=== PATIENT | female | born 1970 | race Caucasian/White ===

== ENCOUNTER 2023-09-23 13:25 | Emergency (ER) | payer MEDICARE, MEDICAID, SELFPAY ==
--- NOTE | ~2023-09-23 | CT_ITS ---
EXAMINATION: CT cervical spine wo con DATE: 09/23/2023 15:43 INDICATION: Neck pain. TECHNIQUE: Computed tomography (CT) of the cervical spine was performed without intravenous contrast. The dose-length product was 471 mGy-cm. Automated exposure control and iterative reconstruction tech [employer] were employed. COMPARISON: None FINDINGS: Normal cervical alignment. Craniovertebral junction is normal. Odontoid process is normal. There is degenerative disc disease and endplate hypertrophy at C5-6. There is disc narrowing at C3-4. There is multilevel uncinate and to a lesser degree facet hypertrophy, most pronounced at C5-6. Lung apices are normal. No evidence for perched facet. Spinous processes are normal. No paraspinal soft t issue abnormality. IMPRESSION: 1. No acute abnormality of the cervical spine. Reviewed, dictated and finalized at location B.
--- NOTE | ~2023-09-23 | XR_ITS ---
EXAM: XR shoulder LT min 2V DATE: 09/23/2023 15:36 HISTORY: left shoulder pain . COMPARISON: None available. FINDINGS: Left chest port terminating in the distal SVC. Normal mineralization. No fracture or dislo cation. No lytic or blastic lesion. Moderate acromioclavicular and mild glenohumeral osteoarthritis. No erosion or periosteal change. Soft tissues within normal limits. IMPRESSION: No acute osseous finding in the left shoulder. Reviewed, dictated and finalized at location K.
--- NOTE | ~2023-09-23 | XR_ITS ---
EXAMINATION: XR chest 1V 09/23/2023 15:36 INDICATION: Chest pain PROCEDURE: PA view of the chest COMPARISON: No prior studies for comparison. FINDINGS: The lungs are clear. The cardiomediastinal silhouette is within normal limits. There are no pleural effusions. There is no pneumothorax suspected. Jose catheter tip in the SVC. IMPRESSION: 1: NO ACUTE CARDIOPULMONARY DISEASE. Reviewed, dictated and finalized at location B.
[2023-09-23 13:41] VITALS: BP 146/93; PULSE 90; RESP 16; TEMP 36.6; O2SAT 98
--- NOTE | 2023-09-23 15:03 | ED.EXTPRO ---
HPI - Extremity Problem General Chief complaint: Recheck/Abnormal Lab/Rx Stated complaint: port moved Time Seen by Provider: 09/23/23 14:54 Source: patient Mode of arrival: ambulatory Limitations: no limitations History of Present Illness HPI Narrative: This is a 53 year old female that presents to the ER for ongoing left shoulder pain. Reports the pain radiates from her neck to her shoulder and into her arm. Reports tingling in her arm which has been ongoing for a couple of months as well. Her port is painful and she is wondering if it has moved. Denies decreased ROM or numbness. Related Data Allergies Allergy/AdvReac Type Severity Reaction Status Date / Time haloperidol [From Haldol] Allergy Unknown Verified 09/23/23 13:26 tramadol Allergy Hives Verified 09/23/23 13:26 Review of Systems Review of Systems: CONSTITUTIONAL: Denies fever CARDIOVASCULAR: Denies chest pain RESPIRATORY: Denies dyspnea. MUSCULOSKELETAL: Reports joint pain, and myalgia. NEUROLOGIC: Denies numbness, or weakness. All systems reviewed & are unremarkable except as noted in HPI and below PMFSH Past Medical History Medical History (Updated 09/23/23 @ 16:15 by Jo Ann Powell PA-C) History of breast cancer History of schizophrenia Social History Social History (Updated 09/23/23 @ 15:13 by Jo Ann Powell PA-C) Substance use: never Exam Narrative: GENERAL: Well-appearing, well-nourished, and in no acute distress. HEAD: Normocephalic, atraumatic. EYES: PERRLA and EOMI. ENT: Nares clear, no rhinorrhea or epistaxis. Mucous membranes moist. Oropharynx without tonsillar hypertrophy exudate or other lesions. Bilateral TMs pearly fraser non-bulging NECK: Supple. No adenopathy or masses. Tender to palpation of the left trapezius musculature CHEST: Clear to auscultation. No respiratory distress. No wheezes rales or rhonchi. Tender to palpation of port site. No overlying erythema or warmth HEART: Regular rate and rhythm. No murmur heard. Normal peripheral pulses. EXTREMITIES: Normal range of motion. No edema. Strength equal in bilateral upper extremities (5/5). Normal radial pulses SKIN: Warm, dry, no rash. NEURO: No focal deficits. Alert and oriented x3. PSYCH: Normal mood and affect Course Course Emergency Course: Patient updated on her workup and agrees with plan of care Vital Signs Vital signs: Vital Signs Temperature 97.9 F 09/23/23 13:41 Pulse Rate 90 09/23/23 13:41 Respiratory Rate 16 09/23/23 13:41 Blood Pressure 146/93 H 09/23/23 13:41 Pulse Oximetry 98 09/23/23 13:41 Oxygen Delivery Room Air 09/23/23 13:41 Temperature 97.9 F 09/23/23 13:41 Pulse Rate 90 09/23/23 13:41 Respiratory Rate 16 09/23/23 13:41 Blood Pressure 146/93 H 09/23/23 13:41 Pulse Oximetry 98 09/23/23 13:41 Oxygen Delivery Room Air 09/23/23 13:41 MDM - Extremity (Nontraumatic) MDM Narrative Medical decision making narrative: Patient presents to the ER for left shoulder/neck pain. Also reporting ongoing over the last couple of months.. She is neurovascularly intact. Left shoulder x-ray without acute osseous abnormalities. Chest x-ray without acute cardiopulmonary abnormality. Cervical spine CT without acute findings. Patient was updated on her workup. Instructed to rest/ice and take over the counter pain medication as needed. Will be given muscle relaxer as needed for pain. She is to follow up with oncology for further management of her port, she is not currently using this. Also instructed to follow up with her PCP. She was given warnings to return to the ER Differential Diagnosis Differential diagnosis: Likely other (cervical radiculopathy, rotator cuff tendinitis) Imaging Data Radiologist's impression: ITS Impressions Shoulder X-Ray 09/23/23 15:36 IMPRESSION: No acute osseous finding in the left shoulder. Chest X-Ray 09/23/23 15:38 IMPRESSION: 1: NO ACUTE CARDIOPULMONARY DISEASE.
[2023-09-23] MEDS: KETOROLAC 30 MG/ML VIAL (*BKC) IM (15:14)
== END 2023-09-23 16:40 | disposition home or self-care (01) ==
PROVIDERS: Emergency Provider Physician Assistant
DX: M25.512 Pain in left shoulder (principal); Z85.3 Personal history of malignant neoplasm of breast
CPT/HCPCS: 71045; 72125; 73030; 96372; 99284; J1885

== ENCOUNTER 2024-07-29 17:47 | Emergency (ER) | payer MEDICARE, SELFPAY ==
--- NOTE | ~2024-07-29 | XR_ITS ---
EXAMINATION: XR knee LT 3V DATE: 07/29/2024 19:07 INDICATION: Left knee injury. TECHNIQUE: 4 views of left knee were obtained. COMPARISON: None. FINDINGS: Alignment is normal. No fracture. There is mild tricompartmental osteoarthritis. No knee genesis int effusion. IMPRESSION: 1. Mild left knee osteoarthritis. Reviewed, dictated and finalized at location A. S COUNTER SPECIALIST
[2024-07-29 18:01] VITALS: BP 149/92; PULSE 96; RESP 20; TEMP 36.3; O2SAT 100
--- NOTE | 2024-07-29 18:38 | ED_ITS ---
HPI - Extremity Injury (Lower) General Chief Complaint: Extremity Injury, Lower Stated Complaint: Left Knee Pain Time Seen by Provider: 07/29/24 18:38 Source: patient and RN notes reviewed Mode of arrival: ambulatory Limitations: no limitations History of Present Illness HPI Narrative: 54-year-old female presents with concern for left knee pain for 1 month. Reports she fell 1 month ago landing on the knee. Reports 2 weeks ago the knee became very painful to walk on. Reports she is disabled and mostly uses a wheelchair for mobility but when she walks her knee is painful. She denies redness, warmth, swelling, open skin MD complaint: knee injury Related Data Home Medications ?Medication ?Instructions ?Recorded ?Confirmed ?Last Taken ?Type aspirin 81 mg tablet,delayed mg 07/29/24 Unknown History release atorvastatin 20 mg tablet mg 07/29/24 Unknown History clonidine HCl 0.1 mg tablet mg 07/29/24 Unknown History lamotrigine 100 mg tablet mg 07/29/24 Unknown History letrozole 2.5 mg tablet mg 07/29/24 Unknown History nitroglycerin 0.4 mg sublingual mg 07/29/24 Unknown History tablet Allergies Allergy/AdvReac Type Severity Reaction Status Date / Time haloperidol (From Haldol) Allergy Unknown Verified 07/29/24 17:50 tramadol Allergy Hives Verified 07/29/24 17:50 Review of Systems Review of Systems: CONSTITUTIONAL: Denies malaise, chills, sweats, or fever. SKIN: Denies rash or itching, open skin, laceration, abrasion, redness, warmth, swelling. MUSCULOSKELETAL: Reports left knee pain NEUROLOGIC: Denies numbness, weakness All systems reviewed & are unremarkable except as noted in HPI and below PMFSH Past Medical History Medical History (Updated 07/29/24 @ 19:22 by Mini Ellison NP) History of schizophrenia History of breast cancer Social History Social History (Updated 09/23/23 @ 15:13 by Jo Ann Powell PA-C) Substance use: never Comments At time of signature, agree with nursing past medical, surgical, social and family history. There is no relevant family history pertinent to the presenting complaint Exam Narrative: GENERAL: Well-appearing, well-nourished, and in no acute distress. HEAD: Normocephalic, atraumatic. EYES: PERRLA, conjunctivae clear NECK: Supple. CHEST: Speaks in full sentences. No respiratory distress. HEART: Regular rate and rhythm. Normal and equal peripheral pulses. EXTREMITIES: Left knee has grossly normal strength and sensation, grossly normal range of motion. No edema or ecchymosis. Normal sensation with sensitivity to light touch and pain. No point tenderness. No open wounds, no skin tenting, no devitalized tissue or atrophy, no trophic changes, no obvious deformity, alignment normal, nearby joints and structures intact. Distal pulses palpable and equal bilaterally, skin warm, dry, pink. Capillary refill less than 3 seconds. SKIN: Warm, dry, no rash. NEURO: Alert and oriented x3. PSYCH: Normal mood and affect Course Course Emergency Course: Patient is aware of diagnosis, understands and agrees to treatment plan. Anticipatory guidance given. Patient agrees to follow-up as directed and is aware of reasons to seek care at the emergency department. Portions of this record may have been created with voice recognition software Level of Care: Express Care Visit Vital Signs Vital signs: Vital Signs Temperature 97.3 F L 07/29/24 18:01 Pulse Rate 96 07/29/24 18:01 Respiratory Rate 20 07/29/24 18:01 Blood Pressure 149/92 H 07/29/24 18:01 Pulse Oximetry 100 07/29/24 18:01 Oxygen Delivery Room Air 07/29/24 18:01 Temperature 97.3 F L 07/29/24 18:01 Pulse Rate 96 07/29/24 18:01 Respiratory Rate 20 07/29/24 18:01 Blood Pressure 149/92 H 07/29/24 18:01 Pulse Oximetry 100 07/29/24 18:01 Oxygen Delivery Room Air 07/29/24 18:01 Reviewed. MDM - Extremity Injury (Lower) MDM Narrative Medical decision making narrative: Patients injury and pain is consistent with musculoskeletal etiology. No signs of neurological or vascular compromise on exam. Compartments and tissues are soft without signs of compartment syndrome. Pain is felt appropriate for further evaluation on an outpatient basis. Imaging Data My impression: Images reviewed, interpreted by radiologist, agree, see report. Radiologist's impression: EXAMINATION: XR knee LT 3V DATE: 07/29/2024 19:07 INDICATION: Left knee injury. TECHNIQUE: 4 views of left knee were obtained. COMPARISON: None. FINDINGS: Alignment is normal. No fracture. There is mild tricompartmental osteoarthritis. No knee joint effusion. IMPRESSION: 1. Mild left knee osteoarthritis. Critical Care Time Critical Care Time Critical Care Time: No Discharge Plan Discharge Clinical Impression: Knee pain Patient Disposition: Home, Self-Care Condition: Stable Instructions: Knee Sprain (ED) Additional Instructions: Your x-ray is normal, not show injury to your. Please follow-up with your primary care provider for further evaluation of your knee Avoid activities that cause pain until the pain subsides. Ice to the area 20-30 minutes 4-6 times a day Elevate above heart Darrius wrap as directed for comfort for the next 5-7 days Tylenol for lesser pain Ibuprofen regularly for the next 2-3 days for the inflammation Follow up with your primary care provider if the condition is not improving within 1 week. If the condition worsens with numbness, tingling, decrease sensation with weakness seek treatment in the emergency room immediately. Patient Language: Macanese Prescriptions: No Action clonidine HCl 0.1 mg tablet atorvastatin 20 mg tablet aspirin 81 mg tablet,delayed release (DR/EC) nitroglycerin 0.4 mg tablet, sublingual letrozole 2.5 mg tablet lamotrigine 100 mg tablet Follow-up/Referrals: Jasvir,Margaret Landeros MD [Primary Care Provider] - Time of Disposition: 19:22
== END 2024-07-29 19:30 | disposition home or self-care (01) ==
PROVIDERS: Emergency Provider Nurse Practitioner; PCP Internal Medicine Gastroenterology
DX: M25.562 Pain in left knee (principal); Z85.3 Personal history of malignant neoplasm of breast
CPT/HCPCS: 73562; 99213; G0463